=== PATIENT | male | born 1945 | race Caucasian/White ===

== ENCOUNTER 2022-05-23 23:04 | Outpatient (CLI) | payer MEDICARE | END 2022-05-23 23:59 | disposition EMS.NT | LOC: EMS 23:04 | DX: R68.84 Jaw pain (principal) ==

== ENCOUNTER 2022-05-24 00:01 | Emergency (ER) | payer MEDICARE ==
[2022-05-24 00:13] VITALS: BP 168/81
[2022-05-24] MEDS ORDERED: BENZOCAINE SPRAY MM STA (00:40)
[2022-05-24] MEDS ORDERED: LIDOCAINE VISCOUS 2% 15 ML UDC MM STA (00:43)
[2022-05-24] MEDS ORDERED: oxyCODONE/ACET 5/325 Prepack 4 PO STA (01:07)
--- NOTE | 2022-05-24 01:08 | ED Physician Documentation ---
PD HPI HEENT - Stated complaint Stated Complaint: TOOTH PX - Chief complaint Chief Complaint: Heent - History obtained from History obtained from: Patient - Additional information Additional information: Patient is a 76-year-old male visiting the area from [place] presenting for evaluation of abscess to his left lower gumline that started this afternoon. Patient recently had a root canal in the area and for the past 2 days has had some swelling. He went to the walk-in clinic today and was started on amoxicillin. He noticed an area of swelling and spoke to his dentist who advised him to come to the emergency department for evaluation.He denies taking a blood thinner. Dentist is Shaina Prieto who is based in [facility]. Review of Systems Constitutional: denies: Fever Throat: reports: Dental pain / toothache Cardiac: denies: Chest pain / pressure Respiratory: denies: Dyspnea GI: denies: Abdominal Pain Neurologic: denies: Headache PD PAST MEDICAL HISTORY - Past Medical History Past Medical History: Yes Cardiovascular: Hypertension, High cholesterol, Coronary artery disease, PA, Atrial fibrillation - Past Surgical History Past Surgical History: Yes Ortho: Hip replacement Cardiovascular: Coronary stent, Cardiac catheterization, Angioplasty HEENT: Other - Allergies Allergies/Adverse Reactions: Allergies Allergy/AdvReac Type Severity Reaction Status Date / Time Sulfa (Sulfonamide AdvReac Hallucinati Verified 05/24/22 00:05 Antibiotics) ons - Social History Does the pt smoke?: No Smoking Status: Never smoker Does the pt drink ETOH?: Yes Does the pt have substance abuse?: No - Immunizations Immunizations are current?: Yes - POLST Patient has POLST: No PD ED PE NORMAL - General General: Alert and oriented X 3, No acute distress, Well developed/nourished - HEENT HEENT: Atraumatic - Neck Neck: Supple, no meningeal sign - Cardiac Cardiac: RRR - Respiratory Respiratory: No respiratory distress - Derm Derm: Warm and dry - Neuro Neuro: Normal speech PD ED PE EXPANDED - HEENT HEENT Visual: 1 - abscess Results - Vitals Vitals: Vital Signs - 24 hr 05/24/22 00:07 Temperature 36.7 C Heart Rate 51 L Respiratory 16 Rate Blood Pressure 168/81 H O2 Saturation 99 Oxygen O2 Source Room air Procedures - Abscess I&D (location) Tooth 19 Preparation: Other Incision: Incised with scalpel, Purulent drainage Other: Pt tolerated well, Other (Patient already on amoxicillin) PD Medical Decision Making - ED course ED course: Patient presenting for evaluation of left dental abscess. Has a small pea-sized abscess to the gumline near tooth 19. No signs of other oral swelling or deep space infection. He is afebrile. Airway appears patent. I did incise the abscess with adequate drainage. Patient is already on antibiotics. He is planning to drive home tomorrow to [place] and plans to have follow-up with his dentist. He is counseled on concerning symptoms to return for. Departure - Departure Disposition: 01 Home, Self Care Clinical Impression: Dental abscess Condition: Stable Instructions: ED Abscess Dental Comments: You have a dental abscess that was opened and drained. Please continue with the antibiotic that you are already prescribed. I have also sent you home with a small amount of narcotic pain medication.Please call your dentist for close follow-up. Please return to the emergency department if you have any worsening symptoms. I am prescribing a short course of narcotic pain medication for you. These are potentially dangerous and addictive medications that should be used carefully. These medications may constipate you. Take an aezs-tgu-yooibtf stool softener (docusate) twice daily with plenty of water while taking these medications. If you go 24 hours without a bowel movement, take [id number] miralax, per pa thomas instructions. Do not drink or drive while taking these medications. If you received narcotic or sedating medications while in the emergency department, do not drive for 24 hours. Store this medication in a safe, secure place and out of reach of children. It is a violation of federal law to give or sell this medication to another person or to use in a manner other than prescribed. The ED will not refill narcotic prescriptions, including prescriptions lost or stolen. To dispose of unwanted medications: 1. [facility] [address] in [place] has a medication drop box. They accept prescription medications (in pill form) Thursday through Thursday 9:00 a.m. to 5:00 p.m. 2. [facility] [employer] [facility] accepts prescription medications (in pill form only) for disposal year round. Call for more information. 3. Contact the [facility] for the next [facility] sponsored prescription drug collection event. , x7310, or [phone]; Note that many narcotic pain relievers also contain Tylenol/acetaminophen. Please ensure that your total dose of acetaminophen from all sources does not exceed 3 g (3000 mg) per day. Discharge Date/Time: 05/24/22 01:13
== END 2022-05-24 01:13 | disposition home or self-care (01) ==
LOC: ED 00:01
DX: K04.7 Periapical abscess without sinus (principal); I10 Essential (primary) hypertension
CPT/HCPCS: 40800